=== PATIENT | male | born 1965 ===

== ENCOUNTER 2022-06-08 19:18 | Emergency (ER) | payer MEDICAID, OTHER ==
[~2022-06-08] VITALS: Ht 175.3 cm; Wt 160.0 kg
[2022-06-08] MEDS ORDERED: HCTZ 25 MG TAB PO ONE (21:00)
[2022-06-08] MEDS ORDERED: amLODIPine BESYLATE 5 MG TAB PO ONE (21:00)
[2022-06-08] MEDS ORDERED: ACETAMINOPHEN 325 MG TAB PO ONE (21:30)
[2022-06-09] MEDS ORDERED: AML5T PO (00:56)
[2022-06-09 02:00] VITALS: BP 149/92
== END 2022-06-09 02:26 | disposition home or self-care (01) ==
LOC: ER 19:18 → EDBD 19:18 → ER 06-09 02:26
DX: I10 Essential (primary) hypertension (principal); Z76.0 Encounter for issue of repeat prescription